=== PATIENT | female | born 1940 | race Caucasian/White ===

== ENCOUNTER 2025-07-15 08:28 | Emergency (ER) | payer MEDICARE, SELFPAY ==
[2025-07-15 08:32] VITALS: BP 159/92; PULSE 69; RESP 18; TEMP 36.4; O2SAT 94
--- NOTE | 2025-07-15 08:34 | W.ED.GENAD ---
Discharge Plan Disposition Patient Disposition: Home Condition: Good Discharge Details Clinical Impression: Contusion of back, Contusion of buttock, Fracture of thoracic spine Primary Care Provider: [facility] ED Provider: Ping Callaway Discharge Instructions Instructions: Vertebral Compression Fracture ED Additional Instructions: As we discussed, the area that you are tender does have some bruising on it on exam but imaging does not show any fractures or dislocations. However, the area where you classically have more chronic back pain that is up higher does show a vertebral fracture. As we discussed, a portion of this is impeding on the area where your spinal cord is located and for this reason the interactive media specialist has recommended follow-up in their clinic in the next week. You are certainly allowed to decline these appointments but, as we have already consulted with them, this ball has started rolling and you may hear from [facility] to schedule your follow-up appointment. They would encourage that you follow-up if you do have any continued discomfort as they may wish to place the brace that we had discussed. However, if you continue to feel that you would prefer to follow-up with physical therapy, referral is attached but I encouraged that you discuss your known diagnosis of fracture further with your physical therapist. If you develop change in your urination or bowel movements, such as having incontinence, have sensation changes, weakness, difficulty walking or develop other new/worsening symptoms please seek care emergently once again as this may be a sign that the fracture is worsening. Please follow-up with your primary care for reevaluation and to discuss pain management in 1 to 2 weeks. Stand Alone Forms: Physical Therapy Referral, Portal Information Referrals: [facility] [Primary Care Provider, Medicine] [facility] Date/Time Provider Initiated Documentation: 07/15/25 08:30. Limitations to Documentation: no limitations. Information obtained by: patient, family and RN notes reviewed. History of Present Illness 84 year old F presents to the emergency department with the chief complaint of low back pain after fall, described as moderate, Quality is described as aching, and is localized to the back. Patient reports no radiation. Patient started experiencing this hour(s) and it has been constant. Immobilization improves symptom(s), Movement worsens symptoms . Patient notes no other symptoms.; denies chest pain, diaphoresis, fever/chills, malaise, nausea/vomiting, shortness of breath, syncope and weakness. Patient did receive the following treatments prior to arrival, none Review of Systems Constitutional Constitutional: Reports as per HPI, Denies chills, Denies fever(s) and Denies headache(s) ENT Ears, Nose, Mouth, and Throat: Denies headache(s) Cardiovascular Cardiovascular: Denies chest pain, Denies dyspnea and Denies dyspnea on exertion Respiratory Respiratory: Denies cough, Denies dyspnea and Denies dyspnea on exertion Gastrointestinal Gastrointestinal: Denies abdominal pain, Denies change in bowel habits and Denies fecal incontinence Genitourinary Genitourinary: Reports as per HPI, Denies urinary incontinence and Denies urinary hesitancy Musculoskeletal Musculoskeletal: Reports as per HPI, Reports back pain, Denies muscle weakness, Denies numbness, Denies radiating pain into limb, Reports stiffness and Denies tingling Integumentary/Breasts Skin/Breast: Reports as per HPI and Denies rash Neurologic Neurologic: Reports as per HPI, Denies headache(s), Denies localized weakness, Denies numbness, Denies radicular pain, Denies sensory deficit, Denies tingling and Denies paresthesias Exam Const General: cooperative, healthy appearing, comfortable, no acute distress, well developed and well groomed Nutritional Appearance: average body habitus and well nourished Orientation: alert and awake Eyes General: appearance normal, both eyes and all related structures Resp Effort & Inspection: normal respiratory effort and able to speak in complete sentences Auscultation: clear to auscultation bilaterally, no rales, no rhonchi and no wheezes Cardio Rate: regular rate Rhythm: regular rhythm Heart Sounds: S1 normal and S2 normal Back/Spine/Pelvis Back/spine/pelvis image:  1. Area of maximal discomfort. Patient also has ecchymosis near this area. No palpable step-off. No pain lateral to this. Pain is fairly generalized without any pinpoint area of maximal discomfort. No break in the skin. Sensation is intact. No pain along C or T-spine with palpation. No pain over the Skin General skin exam: no rashes or lesions noted Neuro General: patient alert and patient awake Cognition: normal cognition Speech: speech normal Gait: normal gait Motor: muscle tone normal throughout, strength 5/5 throughout, no movement abnormalities noted and no fasciculations Sensory Exam: no sensory deficits noted (no saddle paresthesias) Extrem General: normal to inspection, full ROM, capillary refill normal, no joint enlargement, no pedal edema, no calf tenderness and normal gait Medical Decision Making Patient is a pleasant 84-year-old female presenting today via EMS after mechanical fall this morning at which time she fell on her bottom and since then has been having low back pain. She reports that she was playing with her dog this morning when she slipped and her feet came out from under her causing her to fall directly on her bottom. Since then has had significant pain in the coccyx up to the lumbar spine region per EMS. They report that she was able to ambulate with significant assistance. She is having fairly well-controlled pain when she is at rest but any type of movement that engages the lumbar spine area causing increased discomfort. She did not strike her head. No loss of conscious. She denies any headache, visual change, shortness of breath, difficulty breathing, abdominal pain, nausea, incontinence, sensory deficits or weakness. She also notes that she felt similarly last week which also was another mechanical fall had the same time landing in a similar fashion. She does report that she has had some discomfort since that time in the same region greatly exacerbated by her injury today. On exam, patient appears nontoxic. Resting comfortably no acute distress. She has 2+ distal pulses. Full strength in bilateral lower extremities. She has no pain or evidence of head trauma. No pain to palpation over the C or T-spine. Area of lumbar and sacral pain is accompanied by a small area of ecchymosis. No break in the skin or significant swelling. No step-off deformity. No saddle paresthesias or sensory deficits elsewhere in the lower extremity. She has 5 out of 5 strength equal bilateral lower extremities. While the patient's neuroexam is quite reassuring, the significance of her pain as well as that she has had repeat injuries does increase my suspicion for potential fracture. Particularly given how hard she fell I do feel that imaging of the CT is appropriate at this time to rule out any other bony abnormality. No indication at this time to suggest infectious etiology, significant nerve impingement, no indication of cauda equina. CT reviewed by myself, concerning for a T12 injury but patient did not have pain over this area. I reevaluated the patient and she has no pain over this area with palpation. She does state, however, that she has had pain in this area for some time when she is fatigued but no pain there now and has not noted pain in this area associated with dayan fall today or last week. Radiologist called, the above noted fx being the only abnormality that they appreciated as well. However, they also note retropulsion of fx fragment decreasing the spinal foramen from 1.8cm to 1cm. She is neurovascularly intact, no indication of neurologic compromise. With the fracture fragment causing decreases space, will consult with spine at [facility], have pushed images to them as well. Consulted with interactive media specialist Dr. Mcnally at [facility] who reviewed the imaging. He advised that it is hard to tell based on the imaging as well as the patient's history if this is acute or chronic. He did advise that an MRI could help to see if there is any acute edema but likely would not change emergent management for this patient particularly as she is neurologically intact at this point. Advised patient to follow-up in the clinic and could potentially get a TLSO brace which may or may not help with some of her chronic discomfort. He also advised that the retropulsion was not that bad on the imaging he was reviewing and that patient would qualify for an outpatient follow-up. I did review this with the patient as well as her family. She advised that at this point in her life she tends to prefer a more minimal approach to her health and that she likely would not wear a TLSO brace even if she had one fitted for her. She is interested in a referral to physical therapy to help strengthen her core as she believes that the pain associated with the fracture is chronic in nature and that if she is to strengthen her core some she may help with some of the discomfort. She advised that she has noted that she has to modify some of the movements due to the chronic pain in this region but again, denies any acute change in the pain or any new neurodeficits associated with the fall either last week or this week. Will have patient ambulate with staff and plan to discharge to home. While patient is wanting to try some more home remedies such as physical therapy and continuing with core strengthening she we will continue to consider the referral was placed to [facility] spine specialty as well as possible need for TLSO brace although this will be based on how she continues over the next few weeks. Strict return precautions were discussed, in particular signs symptoms of cord or nerve impingement. She is profoundly supportive family who is able to bring her back should she develop any new or worsening symptoms. All of her questions or concerns were addressed and she is in agreement this plan. Will ambulate the patient to ensure safety prior to discharge. Ambulation improved her pain, feels ready for DC which I agree with. Dictation completed using [employer] dictation software. Please excuse any errors or school library media program director anomalies that may remain. PFSH All Active Problems (Updated 07/15/25 @ 11:47 by YI Naylor) Fracture of thoracic spine (Acute) Contusion of buttock (Acute) Contusion of back (Acute) Social History Smoking risk assessment performed?: No
[2025-07-15] MEDS: Acetaminophen 500 MG TAB 1000 MG PO (08:39)
--- NOTE | 2025-07-15 09:40 | DI.CT_ITS ---
Exam(s) CT LUMBAR SPINE WO EXAM: CT LUMBAR SPINE WO CLINICAL HISTORY: fall. TECHNIQUE: Imaging Protocol: Axial computed tomography images with coronal and sagittal reformatted images were created and reviewed. COMPARISON: No exams were available for comparison FINDINGS: Bones: There is an acute burst fracture of T12 with loss of 50 percent of the height of the vertebral body. There is retropulsion into the spinal canal. The AP diameter is 1 cm, compared to 1.8 cm AP diameter at L1. There are degenerative changes seen throughout the left lower thoracic and lumbar spine characterized by joint space narrowing, osteophytes and facet arthropathy. There is grade 1 anterolisthesis of L5 on S1 which is likely degenerative. There is no spondylolysis. There is a mild left convex scoliosis of the lumbar spine. Soft tissues: There are atelectatic changes seen in the lung bases bilaterally. The patient has bilateral renal cysts which appear simple. No follow-up is recommended. There is a small hiatal hernia. Atherosclerotic calcification is present. The patient has bilateral total hip arthroplasties limiting evaluation of the pelvis due to artifact. The urinary bladder is full. IMPRESSION: 1. Acute to subacute burst fracture of T12 with a decreased AP diameter of the spinal canal to 1 cm. There is loss of 50 percent of the height of the vertebral body. 2. Multilevel degenerative changes in the lumbar spine. 3. Findings were discussed with Ping Callaway PA-C, at 10:20 a.m. on 07/15/2025. RADIATION DOSE DELIVERED: 867.75mGy.cm Total DLP 867.75mGy.cm Total DLP DATA REPOSITORY: All CT scans at this facility are submitted to the National Radiology Data Registry (NRDR) Dose Index Registry (DIR) with the [employer] ([employer]). RADIATION OPTIMIZATION: All CT scans at this facility use at least one of these dose optimization techniques: automated exposure control; mA and/or kV adjustment per patient size (includes targeted exams where dose is matched to clinical indication); or iterative reconstruction.
[2025-07-15 12:01] VITALS: BP 143/72; PULSE 72; RESP 18; O2SAT 95
== END 2025-07-15 12:03 | disposition home or self-care (01) ==
LOC: ER 11:50
PROVIDERS: Emergency Provider Physician Assistant; PCP Nurse Practitioner Family
DX: S22.089A Unspecified fracture of T11-T12 vertebra, initial encounter for closed fracture (principal); S30.0XXA Contusion of lower back and pelvis, initial encounter; M54.50 Low back pain, unspecified; W01.0XXA Fall on same level from slipping, tripping and stumbling without subsequent striking against object, initial encounter
CPT/HCPCS: 99283; 99284; 72131